=== PATIENT | female | born 1940 | race Caucasian/White ===

== ENCOUNTER 2017-12-17 09:36 | Inpatient (IN) | payer OTHER, BC ==
[~2017-12-17] VITALS: Ht 157.5 cm; Wt 56.2 kg
[2017-12-23] MEDS ORDERED: AMARYL1 MG PO (13:53)
[2017-12-23] MEDS ORDERED: HYDROCHLOROTHIA25 MG PO (13:54)
[2017-12-23] MEDS ORDERED: JANUMET XR 50-1 EAC1 PO (14:08)
[2017-12-23] MEDS ORDERED: PRINIVIL10 MG PO (14:09)
[2017-12-23] MEDS ORDERED: VITAMIN D31000 UNIT PO (14:09)
[2017-12-26] MEDS ORDERED: TYLENOL REGULA325 MG PO (14:10)
[2017-12-26] MEDS ORDERED: IRON325 M1 PO (14:11)
[2018-02-06] MEDS ORDERED: TYLENOL ARTHRI650 MG PO (16:39)
[2018-03-07] MEDS ORDERED: AMARYL1 MG PO (10:05)
[2018-03-07] MEDS ORDERED: VITAMIN D31000 UNIT PO (10:05)
[2018-03-07] MEDS ORDERED: VITAMIN B122500 MCG PO (10:06)
[2018-03-11 05:50] VITALS: BP 132/60
[2018-03-11 11:34] VITALS: BP 121/58
[2018-03-11 15:38] VITALS: BP 123/60
[2018-03-11 20:23] VITALS: BP 99/51
[2018-03-11 20:50] VITALS: BP 103/53
[2018-03-11 22:59] VITALS: BP 101/55
[2018-03-12 04:51] VITALS: BP 120/60
[2018-03-12 07:32] LABS: HEMATOCRIT 28.9 % (36.0-46.0); MCV 89.5 FL (83-99)
[2018-03-12 07:40] LABS: HEMOGLOBIN 8.7 G/DL (11.9-15.5)
[2018-03-12 07:52] LABS: CHLORIDE 104 MEQ/L (99-109); GFR ESTIMATE (CALCULATED) 57 mL/min/; GLUCOSE 130 mg/dL (70-99); POTASSIUM 3.8 MEQ/L (3.7-5.4); SODIUM 139 MEQ/L (136-147); UREA NITROGEN (BUN) 20 mg/dL (9-23)
[2018-03-12 08:00] VITALS: BP 111/67
[2018-03-12 12:12] VITALS: BP 104/50
[2018-03-12 15:53] VITALS: BP 109/55
[2018-03-12 20:16] VITALS: BP 128/59
[2018-03-13] VITALS (7 sets, daily range): BP systolic 112–144; BP diastolic 51–64
[2018-03-13 05:56] LABS: HEMATOCRIT 29.5 % (36.0-46.0); HEMOGLOBIN 8.9 G/DL (11.9-15.5); MCV 89.7 FL (83-99)
[2018-03-14 08:07] VITALS: BP 120/56
[2018-03-14] MEDS ORDERED: SENNA PLUS TAB1 EACH PO (10:47)
[2018-03-14] MEDS ORDERED: ASPIR-LOW81 MG PO (10:47)
[2018-03-14] MEDS ORDERED: OXYCODONE HCL5 MG PO (10:48)
== END 2018-03-14 15:13 | DRG 470 ==
LOC: 2SOUTH → ENRESERV 03-10 21:58 → 3WEST 03-11 05:35 → 2SOUTH 03-11 05:35 → 3WEST 03-11 11:16 → 2SOUTH 03-11 15:51 → 3WEST 03-13 07:14 → ENRESERV 03-13 10:56 → 3EAST 03-13 14:48
PROVIDERS: Orthopaedic Surgery
PROC: 0SRD0J9 Replacement of Left Knee Joint with Synthetic Substitute, Cemented, Open Approach (ICD-10-PCS; principal; 2018-03-11)
DX: M17.12 Unilateral primary osteoarthritis, left knee (principal); E11.9 Type 2 diabetes mellitus without complications; E78.2 Mixed hyperlipidemia; G89.29 Other chronic pain; I10 Essential (primary) hypertension; K21.9 Gastro-esophageal reflux disease without esophagitis; E66.9 Obesity, unspecified; E55.9 Vitamin D deficiency, unspecified; E53.8 Deficiency of other specified B group vitamins; D50.8 Other iron deficiency anemias; Z79.84 Long term (current) use of oral hypoglycemic drugs; Z68.31 Body mass index [BMI] 31.0-31.9, adult; Z79.82 Long term (current) use of aspirin; Z85.42 Personal history of malignant neoplasm of other parts of uterus
CPT/HCPCS: 71045; 80048; 82948; 85014; 85018; C1713; J0131; J0690; J1100; J1815; J1885; J2405; J2765; J2795; J3010; J7050; J7120; L1820; S0020

== ENCOUNTER → 2017-12-26 | Outpatient (CLI) | payer BC, OTHER ==
[~2017-12-26] VITALS: Ht 157.5 cm; Wt 81.7 kg
[~2017-12-26] MED LIST: AMARYL1 MG PO; HYDROCHLOROTHIA25 MG PO; IRON18 MG PO; JANUMET 50/11 TABLET PO; PRINIVIL10 MG PO; TYLENOL REGULA325 MG PO; VITAMIN D31000 UNIT PO
== END | disposition home or self-care (01) ==
LOC: AMB 13:43
PROVIDERS: Internal Medicine Gastroenterology
PROC: 0DJ08ZZ Inspection of Upper Intestinal Tract, Via Natural or Artificial Opening Endoscopic (ICD-10-PCS; principal; 2017-12-26)
DX: D64.9 Anemia, unspecified (principal); K44.9 Diaphragmatic hernia without obstruction or gangrene; K21.9 Gastro-esophageal reflux disease without esophagitis; I10 Essential (primary) hypertension; G89.29 Other chronic pain; L40.9 Psoriasis, unspecified; E11.9 Type 2 diabetes mellitus without complications; Z79.84 Long term (current) use of oral hypoglycemic drugs; E66.9 Obesity, unspecified; E55.9 Vitamin D deficiency, unspecified; Z80.3 Family history of malignant neoplasm of breast; Z82.49 Family history of ischemic heart disease and other diseases of the circulatory system; Z80.8 Family history of malignant neoplasm of other organs or systems; Z68.33 Body mass index [BMI] 33.0-33.9, adult; Z88.8 Allergy status to other drugs, medicaments and biological substances
CPT/HCPCS: 82948

== ENCOUNTER 2018-04-08 09:14 | Emergency (ER) | payer OTHER, BC ==
[~2018-04-08] VITALS: Ht 157.5 cm; Wt 78.9 kg
[~2018-04-08 09:14] MED LIST changes: +ASPIR-LOW81 MG PO; -IRON18 MG PO; +IRON325 M1 PO; -JANUMET 50/11 TABLET PO; +JANUMET XR 50-1 EAC1 PO; +OXYCODONE HCL5 MG PO; +SENNA PLUS TAB1 EACH PO; +TYLENOL ARTHRI650 MG PO; +VITAMIN B122500 MCG PO
[2018-04-08 09:51] LABS: HEMATOCRIT 32.7 % (36.0-46.0); HEMOGLOBIN 10.2 G/DL (11.9-15.5); MCH 29.1 PG (29.0-34.0); MCHC 31.2 G/DL (30.0-36.0); MCV 93.2 FL (83-99); PLATELET COUNT 184 K/uL (156-360); RBC DIS.WIDTH-CV 17.8 % (11.8-14.6); RBC DIS.WIDTH-SD 60.9 % (39-53); RED BLOOD COUNT 3.51 M/uL (3.80-5.20); WHITE BLOOD COUNT 6.3 K/uL (4.1-10.2)
[2018-04-08 12:23] VITALS: BP 127/59
== END 2018-04-08 12:24 | disposition home or self-care (01) ==
LOC: EME 09:14
PROVIDERS: Physician Assistant
PROC: 0HQLXZZ Repair Left Lower Leg Skin, External Approach (ICD-10-PCS; principal; 2018-04-08)
DX: T81.30XA Disruption of wound, unspecified, initial encounter (principal); Z98.890 Other specified postprocedural states; W07.XXXA Fall from chair, initial encounter; Y93.G3 Activity, cooking and baking; Z96.652 Presence of left artificial knee joint
CPT/HCPCS: 73564; 85027; 99281; 99285